=== PATIENT | female | born 1965 | race Caucasian/White ===

== ENCOUNTER 2024-01-17 20:03 | Emergency (ER) | payer SELFPAY ==
[~2024-01-17] VITALS: Ht 167.6 cm; Wt 75.0 kg
[2024-01-17 20:09] VITALS: O2SAT 99
[2024-01-17] MEDS: LORAZEPAM 1MG TABLET PO ONE (21:02)
[2024-01-17 21:20] VITALS: BP 132/91; PULSE 90; RESP 17; TEMP 98.2
[2024-01-17 21:20] LABS: BASOPHILS % 0.3 % (0.0-2.0); EOSINOPHILS % 0.6 % (0.0-5.0); HEMATOCRIT. 41.1 % (36.0-48.0); HEMOGLOBIN. 13.8 g/dL (12.0-16.0); LYMPHOCYTES % 26.1 % (20.0-50.0); MEAN CORPUSCULAR HEMOGLOBIN 29.2 pg (28.0-32.0); MEAN CORPUSCULAR HGB CONC 33.6 g/dL (31.0-37.0); MEAN PLATELET VOLUME 7.7 fl (7.4-10.4); MONOCYTES % 6.3 % (2.0-8.0); NEUTROPHILS % 66.7 % (40.0-76.0); PLATELET 317 x1000/uL (130-400); RED BLOOD CELL COUNT 4.72 mill/uL (4.2-5.4); RED CELL DISTRIBUTION WIDTH 13.8 % (11.6-14.6); WHITE BLOOD COUNT 7.9 x1000/uL (4.5-11.0)
[2024-01-17 21:30] LABS: CHLORIDE 104 mEq/L (98-107); POTASSIUM 4.1 mEq/L (3.5-5.1); SODIUM 138 mEq/L (136-145)
[2024-01-17 21:31] LABS: CALCIUM 9.8 mg/dL (8.7-10.4); CARBON DIOXIDE 24 mEq/L (21-32)
[2024-01-17 21:36] LABS: CREATININE 0.8 mg/dL (0.6-1.0); GLUCOSE 115 mg/dL (70-105); TROPONIN I HIGH SENSITIVITY < 4 ng/L (3.0-34); UREA NITROGEN BLOOD 12 mg/dL (9-23)
== END 2024-01-17 22:05 | disposition home or self-care (01) ==
LOC: ER 20:03
DX: F41.9 Anxiety disorder, unspecified (principal); R07.9 Chest pain, unspecified
CPT/HCPCS: 36415; 71045; 80048; 84484; 85025; 93005; 99285